=== PATIENT | female | born 1990 | race Caucasian/White ===

== ENCOUNTER 2022-01-20 16:08 | Observation (INO) ==
[2022-01-20] MEDS ORDERED: ACETAMINOPHEN 500 MG TAB PO STA (17:04)
[2022-01-20 17:20] LABS: Basophils # (auto) 0.02 K/uL (0-0.2); Basophils % (auto) 0.2 %; Hematocrit (blood only) 33.2 % (34.1-44.9); Hemoglobin 10.9 g/dl (12.0-16.0); Immature Granulocytes # (auto) 0.04 K/uL (0.00-0.02); Immature Granulocytes % (auto) 0.4 %; Lymphocytes # (auto) 1.47 K/uL (1.2-3.4); Mean Corpuscular Hgb Conc 32.8 g/dL (32.0-36.0); Mean Corpuscular Volume 82.4 fL (80.0-100.0); Mean Platelet Volume 12.6 fL (9.4-12.3); Monocytes # (auto) 0.64 K/uL (0.24-0.82); Monocytes % (auto) 6.1 %; Neutrophils # (auto) 8.22 K/uL (1.4-6.5); Neutrophils % (auto) 78.3 %; Platelet Count 188 K/uL (130-400); RDW Coefficient of Variation 13.2 % (11.5-14.5); RDW Standard Deviation 39.3 fL (36.4-46.3); Red Blood Count 4.03 M/uL (3.93-5.22); White Blood Count 10.49 K/ul (4.8-10.8)
[2022-01-20 17:46] LABS: Alanine Aminotransferase 21 U/L (7-52); Alkaline Phosphatase 176 U/L (34-104); Anion Gap 9 (3-11); Aspartate Aminotransferase 20 U/L (13-39); BUN Creatinine Ratio 17.3 (10-20); Bilirubin Direct 0.1 mg/dl (0-0.2); Bilirubin,Total 0.4 mg/dl (0.2-1.0); Blood Urea Nitrogen 14 mg/dl (6-23); Calcium 8.3 mg/dl (8.5-10.1); Carbon Dioxide 23 mmol/L (21-32); Chloride 103 mmol/L (98-107); Est GFR (African American) 113.8 ml/min; Est GFR (Non-African American) 98.1 ml/min; Globulin 2.9 gm/dl (2.5-4.0); Glucose 87 mg/dl (70-99(Fasting)); Sodium 135 mmol/L (136-145); Total Protein 5.9 gm/dl (6.0-8.3)
[2022-01-20] MEDS ORDERED: BETAMETH SOD PHOS/ACETATE IA 6 MG/ML IM STA (19:31)
[2022-01-20] MEDS ORDERED: CETIRIZINE HCL 10 MG TABLET PO PRN (20:21)
--- NOTE | 2022-01-20 20:21 | History & Physical Report ---
Date of Service January 20, 2022 Assessment & Plan (1) 35 weeks gestation of : (2) Dichorionic diamniotic twin , antepartum: (3) Preeclampsia: (4) Gestational diabetes: Plan: No persistence of elevated bps to suggest severe features but concern given her ega, twins and dx already of preeclampsia. feel prudent to observe and be ready to deliver patient if severe features develop. currently no symptoms of concern. begin course of steroids in meantime. breech/breech presentation and therefore c/s if needs delivered. spoke with peds sale professional digital marketing who is comfortable with twins delivering here if needed. twins categ 1 tracing. pt and partner a monet of plan. pt does have very labile sbp depending on when provider/nurse in room. however, will need to see what trend shows as delivery may become necessary. for now, will allow diet and plan routine home meds. Admission and Anticipated Discharge Date Admission Date: January 20, 2022 History of Present Illness Chief Complaint: elevated bps Primary Care Provider: Kai Reza MD 31yo at 35 3/7 wks ega with di/di twin , carrying dx of preeclampsia presents to L&D with above cc. Took bp at work today when had MCF[place] return after taking tylenol in am. DBP >100 and was told to come to LD. On arrival bp initially in severe range but then resolved to non severe range bps. Tylenol given for MCF[place] and MCF[place] improved. Patient babies were reactive x 2. Opted to sit up patient again for bp before considering d/c and sbp >160. That improved once back in semi-fowlers position. No persistent elevated bps to treat however concern about status ? worsening and therefore opted to keep overnight and initiate course of steroids. +FM x 2. Some epig discomfort due to babies positioning. No ruq pain. No MCF[place] currently. +swelling, not worse. being treated with prednisone for PUPPS and has been able to rest better at night, also using benadryl prn. GDM diet controlled as well. PNC c/b 1. Di/Di twins concordant, efw 2. GDM diet controlled. 3. Obesity 4. A sthma, has not used inhaler this 5. PUPPs, prednisone course. PNL rh pos, ri, gbs not collected yet Allergies Allergy/AdvReac Type Severity Reaction Status Date / Time No Known Allergies Allergy Verified 01/20/22 19:26 Home Medications Medication Instructions Recorded Confirmed Type prenat.vits,belkys,gnz-imnd-ekmbm 1 tab PO QAM 07/07/21 01/20/22 History acetone (urine) test (Ketone Urine #50 ea 09/18/21 01/16/22 Rx Test) blood sugar diagnostic (OneTouch #150 ea 09/18/21 01/16/22 Rx Verio test strips) blood-glucose meter (OneTouch #1 ea 09/18/21 01/16/22 Rx Verio Flex meter) lancets 33 gauge (OneTouch Delica #150 ea 09/18/21 01/16/22 Rx Plus Lancet) Breast Pump #1 ea 12/12/21 01/16/22 Rx aspirin 81 mg chewable tablet 81 mg PO QAM 12/26/21 01/20/22 History cetirizine 10 mg tablet (Zyrtec) 10 mg PO UD PRN 12/26/21 01/20/22 History famotidine 20 mg tablet (Pepcid) 20 mg PO BID 12/26/21 01/20/22 History prednisone 10 mg tablet 10 mg PO DAILY #30 tab 01/18/22 01/20/22 Rx Patient History Medical History Acid reflux Asthma Controlled Borderline high blood pressure 140s/80-90s per most recent OB visits, under surveillance Gestational diabetes Diet controlled History of COVID-19 Dx 12/12/21 ([facility] report scanned into [employer]) > symptoms at time: sore throat, congestion, body aches > resolved Twin ASA prophylactic d/t twin to decrease pre-eclampsia risk per pt Surgical History History of placement of ear tubes S/P nerve repair Nerve repair of L index finger [place] teeth extracted Family History Grandmother (Maternal) Breast cancer Aunt Breast cancer Grandmother (Paternal) Heart disease Myocardial infarction Father Hypertension Diabetes Type 2 Denies family history of Ovarian cancer Lung cancer Colorectal cancer Social History Smoking Status: Never smoker Hx Alcohol Use: No Hx Substance Use: No Preferred Language: Telugu Communication Ability: Effective Die Filer Required: No Beliefs That Will Affect Care: None marital status: marital status details: Nando Burrell (28) [phone] Current Living Situation: Spouse Current Living Situation Comment: Lives with and dog current occupational status: employed current occupation: [employer] - [employer] Other Information That Helps Us Care for You: No Feels Safe at Home: Yes Safety Concerns: Feels Safe At This Time Assistive Devices: None Review of Systems as per Subjective / HPI Physical Exam Constitutional: WD/WN, vitals as above Respiratory: normal respiratory effort, lungs clear to auscultation Cardiovascular: Rate/Rhythm: regular rate and regular rhythm Gastrointestinal (Abdomen): soft gravid nt no ruq or epig pain Musculoskeletal: +2 edema nontender calves Skin: diffuse papular rash Neurologic: grossly normal patellar dtrs +2, no clonus Psychiatric: A+Ox3, euthymic affect Genitourinary: OB Exam Monitor Tracing: + external FHT monitor used, + external uterine monitor used (irreg and irrit), + category I (twin nst reactive) and + normal FHT variability GBS obtained. [facility] ([facility]) Vital Signs (Past 12 Hours) Vital Signs Temp Pulse Resp BP 01/20/22 19:35 87 159/89 H 01/20/22 19:20 90 150/89 H 01/20/22 19:10 88 142/86 H 01/20/22 19:00 81 162/92 H 01/20/22 18:10 83 146/87 H 01/20/22 17:41 88 158/86 H 01/20/22 17:05 90 148/91 H 01/20/22 16:50 98.4 F 85 20 143/92 H 01/20/22 16:31 85 152/89 H 01/20/22 16:19 84 168/89 H Coding Level of Care Code None Diagnoses 35 weeks gestation of Z3A.35 Dichorionic diamniotic twin , antepartum O30.049 Preeclampsia O14.90 Gestational diabetes O24.419
[2022-01-20] MEDS ORDERED: diphenhydrAMINE Capsule 25 MG CAP PO PRN (20:23)
[2022-01-20] MEDS ORDERED: predniSONE 10 MG TABLET PO SCH (21:00)
[2022-01-20] MEDS ORDERED: FAMOTIDINE 20 MG TAB PO SCH (21:00)
[2022-01-20] MEDS ORDERED: Nursing to Pharmacy Communication SCH (21:15)
[2022-01-20] MEDS ORDERED: ACETAMINOPHEN 325 MG TAB PO PRN (23:00)
[2022-01-21 05:55] LABS: Hematocrit (blood only) 31.5 % (34.1-44.9); Hemoglobin 10.2 g/dl (12.0-16.0); Mean Corpuscular Hemoglobin 27.2 pg (25.0-34.0); Mean Corpuscular Hgb Conc 32.4 g/dL (32.0-36.0); Mean Platelet Volume 12.1 fL (9.4-12.3); Platelet Count 183 K/uL (130-400); RDW Coefficient of Variation 13.1 % (11.5-14.5); RDW Standard Deviation 39.4 fL (36.4-46.3); Red Blood Count 3.75 M/uL (3.93-5.22); White Blood Count 11.14 K/ul (4.8-10.8)
[2022-01-21 06:27] LABS: Albumin Globulin Ratio 1.1 (0.9-2); Albumin Level 2.7 gm/dl (3.4-5.0); BUN Creatinine Ratio 20.5 (10-20); Bilirubin Direct 0.1 mg/dl (0-0.2); Bilirubin,Total 0.6 mg/dl (0.2-1.0); Calcium 7.7 mg/dl (8.5-10.1); Creatinine Clr Calc Pharmacy 135.1 ml/min; Est GFR (African American) 119.1 ml/min; Est GFR (Non-African American) 102.7 ml/min; Globulin 2.5 gm/dl (2.5-4.0); Potassium 4.3 mmol/L (3.5-5.1); Total Protein 5.2 gm/dl (6.0-8.3)
--- NOTE | 2022-01-21 08:28 | Obstetrical Progress Note ---
Date of Service January 21, 2022 Assessment & Plan (1) Dichorionic diamniotic twin , antepartum: (2) Gestational diabetes: (3) Preeclampsia: (4) 35 weeks gestation of : Plan stable overnight. most bps are not severe range. and severe range bps, do not persist. no sx this am. labs this am were stable. nsts reactive today. s/p roid x 1 thus far. will consider dc home and re-dose roids x1 at 24hrs. will d/w oncoming md. pt aware. ok to eat breakfast. Admission and Anticipated Discharge Date Admission Date: January 20, 2022 Subjective feels well today, had mild costello overnight took tylenol and resolved. none this am. no epig/ruq pain, visual change. babies moving Review of Systems Constitutional: as per Subjective / HPI Physical Exam Constitutional: WD/WN, vitals as above Respiratory: normal respiratory effort, lungs clear to auscultation Cardiovascular: Rate/Rhythm: regular rate and regular rhythm Gastrointestinal (Abdomen): Percussion/Palpation: abdomen soft; abdomen nontender gravid Musculoskeletal: +2 edema Neurologic: DTRs +2-3 patellar, no clonus Genitourinary: OB Exam Monitor Tracing: + external FHT monitor used, + external uterine monitor used (irreg), + category I and + normal FHT variability (reactive x 2) Results & Data ([facility]) Vital Signs (Past 12 Hours) Vital Signs Temp Pulse Resp BP 01/21/22 07:47 98.2 F 90 20 144/86 H 01/21/22 05:46 103 H 121/68 01/21/22 04:01 97.9 F 83 16 138/78 01/21/22 02:08 91 H 128/60 01/20/22 23:54 16 01/20/22 23:54 16 01/20/22 23:54 74 01/20/22 23:54 131/66 01/20/22 22:03 83 01/20/22 22:03 154/88 H 01/20/22 21:22 82 01/20/22 21:22 135/70 01/20/22 20:25 20 01/20/22 20:25 98.2 F 20 01/20/22 20:25 83 01/20/22 20:25 166/84 H PG Care Time/CCT Total # of Minutes Spent Total Time Spent with Patient: Total time spent is greater than 50% in coordination of care (as documented) at patient's floor/unit and/or counseling patient: Coding Level of Care Code OBSERV/HOSP SAME DATE LVL 1 Diagnoses Dichorionic diamniotic twin , antepartum O30.049 Gestational diabetes O24.419 Preeclampsia O14.90 35 weeks gestation of Z3A.35
[2022-01-21] MEDS ORDERED: ASPIRIN 81 MG CHEW PO SCH (09:00)
[2022-01-21] MEDS ORDERED: PRENATAL VITAMIN 1 TAB PO SCH (09:00)
[2022-01-21] MEDS ORDERED: predniSONE 10 MG TABLET PO SCH (09:00)
== END 2022-01-21 09:06 | disposition home or self-care (01) ==
LOC: 4S1 16:08 → OPB 16:08 → 4S1 16:09

== ENCOUNTER 2022-01-26 15:42 | Inpatient (IN) ==
[2022-01-26] MEDS ORDERED: MAG SULFATE 4GM BOLUS FROM BAG IV ONE (16:07)
--- NOTE | 2022-01-26 16:14 | History & Physical Report ---
Date of Service January 26, 2022 Assessment & Plan (1) Encounter for supervision of normal intrauterine in primigravida, antepartum: Plan: Patient has had ongoing elevated blood pressures and been followed for preeclampsia she had a scheduled delivery date of section later this week at 37 weeks however she now has a worsening headache that is nonresponsive to Tylenol along with blood pressures in the severe features range I think this pushes her into preeclampsia with severe features I recommend delivery now patient agrees. section. The patient was counseled to the nature of the procedure including alternatives such as labor. Risks were discussed including bleeding infection injury to bowel bladder ureter vessels and even baby. Deep Vein thrombosis, pulmonary embolus discussed. Breakdown of incision reviewed. Deep vein thrombosis pulmonary embolus hernia and failure of the incision to heal were discussed Patient verbalized understanding of this and was given ample time to ask questions Discussed increased risk of blood loss with twin gestation Will order magnesium for preeclampsia with severe features and watch blood pressure carefully History of Present Illness Primary Care Provider: Kai Reza MD Allergies Allergy/AdvReac Type Severity Reaction Status Date / Time No Known Allergies Allergy Verified 01/26/22 15:04 Home Medications Medication Instructions Recorded Confirmed Type prenat.vits,belkys,psg-yndw-vgzpo 1 tab PO QAM 07/07/21 01/26/22 History acetone (urine) test (Ketone Urine #50 ea 09/18/21 01/26/22 Rx Test) blood sugar diagnostic (OneTouch #150 ea 09/18/21 01/26/22 Rx Verio test strips) blood-glucose meter (OneTouch #1 ea 09/18/21 01/26/22 Rx Verio Flex meter) lancets 33 gauge (OneTouch Delica #150 ea 09/18/21 01/26/22 Rx Plus Lancet) Breast Pump #1 ea 12/12/21 01/26/22 Rx aspirin 81 mg chewable tablet 81 mg PO QAM 12/26/21 01/26/22 History cetirizine 10 mg tablet (Zyrtec) 10 mg PO UD PRN Allergy Symptoms 12/26/21 01/26/22 History famotidine 20 mg tablet (Pepcid) 20 mg PO BID 12/26/21 01/26/22 History prednisone 10 mg tablet 10 mg PO DAILY #30 tabs 01/18/22 01/26/22 Rx Patient History Medical History Acid reflux Asthma Controlled Borderline high blood pressure 140s/80-90s per most recent OB visits, under surveillance Gestational diabetes Diet controlled History of COVID-19 Dx 12/12/21 ([facility] report scanned into [employer]) > symptoms at time: sore throat, congestion, body aches > resolved Twin ASA prophylactic d/t twin to decrease pre-eclampsia risk per pt Surgical History History of placement of ear tubes S/P nerve repair Nerve repair of L index finger [place] teeth extracted Family History Grandmother (Maternal) Breast cancer Aunt Breast cancer Grandmother (Paternal) Heart disease Myocardial infarction Father Hypertension Diabetes Type 2 Denies family history of Ovarian cancer Lung cancer Colorectal cancer Social History Smoking Status: Never smoker Hx Alcohol Use: No Hx Substance Use: No Preferred Language: Kyrgyz Communication Ability: Effective Instructional Specialist Required: No Beliefs That Will Affect Care: None marital status: marital status details: Nando Burrell (28) [phone] Current Living Situation: Spouse Current Living Situation Comment: Lives with and dog current occupational status: employed current occupation: [employer] Feels Safe at Home: Yes Assistive Devices: None Review of Systems as per Subjective / HPI Physical Exam Constitutional: WD/WN, vitals as above well developed and well nourished Respiratory: normal respiratory effort, lungs clear to auscultation normal respiratory effort Cardiovascular: RRR, no murmur, no edema Gastrointestinal (Abdomen): normal bowel sounds, soft, nontender, no hepatosplenomegaly Results & Data ([facility]) Vital Signs (Past 12 Hours) Vital Signs Pulse BP 01/26/22 15:59 80 167/90 H Coding Level of Care Code None Diagnoses Encounter for supervision of normal intrauterine in primigravida, antepartum Z34.00
[2022-01-26] MEDS ORDERED: MAGNESIUM SULFATE / WTR 40 GM/1,000 ML BAG IV SCH (16:15)
[2022-01-26] MEDS ORDERED: LACTATED RINGER'S 1,000 ML IV SCH (16:15)
--- NOTE | 2022-01-26 16:21 | History & Physical Report ---
Date of Service January 26, 2022 Assessment & Plan (1) with 36 completed weeks gestation: (2) Preeclampsia: (3) Dichorionic diamniotic twin , antepartum: (4) Gestational diabetes: Plan Blood pressure on presentation 167/90. Has headache and 10lbs weight gain over the past 3 days with swelling in her LE B/L. Plan was to deliver at 37 weeks, with todays presentation concern for preeclampsia with serve features. Plan for C Section tonight. History of Present Illness Primary Care Provider: Kai Reza MD Anne Marie is a 31 y/o female currently at 36 4/7 WGA with an JEFFERY 02/19/22 as determined by LMP who is here for with preeclampsia with serve features. Her was complicated by preecmalpsia and GDM. She is having di/di twins. Irregular contractions; + movement; no fluid loss; no bloody show External FHT and external uterine monitors used; Category 1 tracing; mod FHT variability. Had regular appointments with OB. Labs: (07/16/21) Blood type: A- Antibody screen: neg Hg: pending (today) Hct: pending (today) WBC: pending (today) Plt: pending (today) Rubella: immune VDRL/RPR: nonreactive Gonorrhea: neg Chlamydia: neg HIV: neg HbSAg: neg GBS: neg Other screens: declines all genetics/msafp --smp Allergies Allergy/AdvReac Type Severity Reaction Status Date / Time No Known Allergies Allergy Verified 01/26/22 15:04 Home Medications Medication Instructions Recorded Confirmed Type prenat.vits,belkys,sld-jexh-awjkz 1 tab PO QAM 07/07/21 01/26/22 History acetone (urine) test (Ketone Urine #50 ea 09/18/21 01/26/22 Rx Test) blood sugar diagnostic (OneTouch #150 ea 09/18/21 01/26/22 Rx Verio test strips) blood-glucose meter (OneTouch #1 ea 09/18/21 01/26/22 Rx Verio Flex meter) lancets 33 gauge (OneTouch Delica #150 ea 09/18/21 01/26/22 Rx Plus Lancet) Breast Pump #1 ea 12/12/21 01/26/22 Rx aspirin 81 mg chewable tablet 81 mg PO QAM 12/26/21 01/26/22 History cetirizine 10 mg tablet (Zyrtec) 10 mg PO UD PRN Allergy Symptoms 12/26/21 01/26/22 History famotidine 20 mg tablet (Pepcid) 20 mg PO BID 12/26/21 01/26/22 History prednisone 10 mg tablet 10 mg PO DAILY #30 tabs 01/18/22 01/26/22 Rx Patient History Medical History Acid reflux Asthma Controlled Borderline high blood pressure 140s/80-90s per most recent OB visits, under surveillance Gestational diabetes Diet controlled History of COVID-19 Dx 12/12/21 ([facility] report scanned into [employer]) > symptoms at time: sore throat, congestion, body aches > resolved Twin ASA prophylactic d/t twin to decrease pre-eclampsia risk per pt Surgical History History of placement of ear tubes S/P nerve repair Nerve repair of L index finger [place] teeth extracted Family History Grandmother (Maternal) Breast cancer Aunt Breast cancer Grandmother (Paternal) Heart disease Myocardial infarction Father Hypertension Diabetes Type 2 Denies family history of Ovarian cancer Lung cancer Colorectal cancer Social History Smoking Status: Never smoker Hx Alcohol Use: No Hx Substance Use: No Preferred Language: Gabonese Communication Ability: Effective Bindery Chief Required: No Beliefs That Will Affect Care: None marital status: marital status details: Nando Burrell (28) [phone] Current Living Situation: Spouse Current Living Situation Comment: Lives with and dog current occupational status: employed current occupation: [employer] Feels Safe at Home: Yes Assistive Devices: None Review of Systems Denies fever, chills, sweats Is having some mild shortness of breath. Denies difficulty breathing, chest pain, palpitations, chest pressure. Denies breast pain. Denies dysuria. Headache with some mild lightheadedness. No changes in vision. Physical Exam Physical Exam: General: Alert, oriented. No acute distress. Cardiac: Regular rate and rhythm, no murmurs/rubs/gallops. Respiratory: Clear to auscultation bilaterally a/p, no wheezes/rales/rhonchi. No increased work of breathing. Symmetrical chest rise. No respiratory distress. Abdomen: Gravid Lower Extremities: Lower extremity up to knee, tender, not erythematous. Results & Data ([facility]) Vital Signs (Past 12 Hours) Vital Signs Pulse BP 01/26/22 15:59 80 167/90 H Resident Activity Tracking Resident Involvement: Resident Care Provided Care Provided: OB Delivery (H&P)
[2022-01-26 16:30] LABS: Basophils # (auto) 0.02 K/uL (0-0.2); Basophils % (auto) 0.2 %; Eosinophils # (auto) 0.05 K/uL (0-0.50); Eosinophils % (auto) 0.5 %; Hematocrit (blood only) 30.4 % (34.1-44.9); Hemoglobin 9.9 g/dl (12.0-16.0); Immature Granulocytes # (auto) 0.11 K/uL (0.00-0.02); Immature Granulocytes % (auto) 1.1 %; Lymphocytes # (auto) 1.38 K/uL (1.2-3.4); Lymphocytes % (auto) 14.2 %; Mean Corpuscular Hemoglobin 26.7 pg (25.0-34.0); Mean Corpuscular Hgb Conc 32.6 g/dL (32.0-36.0); Mean Corpuscular Volume 81.9 fL (80.0-100.0); Mean Platelet Volume 12.7 fL (9.4-12.3); Monocytes # (auto) 0.66 K/uL (0.24-0.82); Monocytes % (auto) 6.8 %; Neutrophils # (auto) 7.52 K/uL (1.4-6.5); Neutrophils % (auto) 77.2 %; Nucleated RBC # (auto) 0.04 K/uL (0-0); Nucleated RBC % (auto) 0.4 %; Platelet Count 172 K/uL (130-400); RDW Coefficient of Variation 13.5 % (11.5-14.5); RDW Standard Deviation 39.6 fL (36.4-46.3); Red Blood Count 3.71 M/uL (3.93-5.22); White Blood Count 9.74 K/ul (4.8-10.8)
[2022-01-26 16:50] LABS: Est GFR (African American) 101.5 ml/min; Est GFR (Non-African American) 87.6 ml/min
[2022-01-26] MEDS ORDERED: CITRIC ACID/SODIUM CITRATE 15 ML UDC PO ONE (17:42)
--- NOTE | 2022-01-26 17:57 | Anesthesiology Consultation ---
Date of Service January 26, 2022 Assessment & Plan (1) Encounter for pre-operative examination: History Surgery Operation Date: 01/26/22 18:30 Proposed Procedures p Section in LD(Bilateral) - Matilda Pineda MD, FACOG Height/Weight Height: 5 ft 3 in Weight: 130.181 kg Allergies Allergy/AdvReac Type Severity Reaction Status Date / Time No Known Allergies Allergy Verified 01/26/22 15:04 Medications Home Medications Medication Instructions Recorded Confirmed Last Taken prenat.vits,belkys,hcg-gekv-xfobl 1 tab PO QAM 07/07/21 01/26/22 01/20/22 07:00 acetone (urine) test (Ketone Urine #50 ea 09/18/21 01/26/22 Unknown Test) blood sugar diagnostic (OneTouch #150 ea 09/18/21 01/26/22 Unknown Verio test strips) blood-glucose meter (OneTouch #1 ea 09/18/21 01/26/22 Unknown Verio Flex meter) lancets 33 gauge (OneTouch Delica #150 ea 09/18/21 01/26/22 Unknown Plus Lancet) Breast Pump #1 ea 12/12/21 01/26/22 Unknown aspirin 81 mg chewable tablet 81 mg PO QAM 12/26/21 01/26/22 01/20/22 07:00 cetirizine 10 mg tablet (Zyrtec) 10 mg PO UD PRN Allergy Symptoms 12/26/21 0 01/26/22 01/20/22 07:00 famotidine 20 mg tablet (Pepcid) 20 mg PO BID 12/26/21 01/26/22 01/20/22 07:00 prednisone 10 mg tablet 10 mg PO DAILY #30 tabs 01/18/22 01/26/22 01/18/22 10:00 Active Medications Generic Name Dose Route Start Last Admin Trade Name Freq PRN Reason Stop Dose Admin Lactated Ringer's 1,000 mls @ 125 mls/hr 01/26/22 16:15 01/26/22 17:01 Lr IV 02/25/22 16:14 125 mls/hr .Q8H CAROL Administration Magnesium Sulfate 40 gm in 1,000 mls @ 50 mls/hr 01/26/22 16:15 01/26/22 17:25 Magnesium Sulfate / Wtr IV 02/25/22 16:14 50 mls/hr .Q20H CAROL Administration Past Medical History Medical History Acid reflux Asthma Controlled Borderline high blood pressure 140s/80-90s per most recent OB visits, under surveillance Gestational diabetes Diet controlled History of COVID-19 Dx 12/12/21 ([facility] report scanned into [employer]) > symptoms at time: sore throat, congestion, body aches > resolved Twin ASA prophylactic d/t twin to decrease pre-eclampsia risk per pt Past Family History Family History Grandmother (Maternal) Breast cancer Aunt Breast cancer Grandmother (Paternal) Heart disease Myocardial infarction Father Hypertension Diabetes Type 2 Denies family history of Ovarian cancer Lung cancer Colorectal cancer Past Surgical History Surgical History History of placement of ear tubes S/P nerve repair Nerve repair of L index finger [place] teeth extracted Social History Smoking Status: Never smoker Hx Alcohol Use: No Hx Substance Use: No substance use type: does not use Physical Exam Vital Signs Last Vital Signs Temp 36.6 C 01/26/22 16:32 Pulse 95 H 01/26/22 17:59 Resp 20 01/26/22 17:15 BP 162/92 H 01/26/22 17:59 Pulse Ox 99 01/26/22 17:58 Testing Laboratory Results 01/26/22 16:20 01/26/22 16:20 Blood Type A Negative 01/26/22 16:20 Antibody Screen NEGATIVE 01/26/22 16:20
[2022-01-26] MEDS ORDERED: MoRPHine SULFATE PF 1 MG/ML 10 ML AMP/VIAL ONE (18:08)
[2022-01-26] MEDS ORDERED: PHENYLEPHRINE 100MCG/ML 5ML SYR ONE (19:06)
[2022-01-26] MEDS ORDERED: LIDOCAINE 2% 20 MG/ML 5 ML SYR IV ONE (19:06)
[2022-01-26] MEDS ORDERED: PROPOFOL IV EMULSION 10 MG/ML 20 ML VIAL IV ONE (19:06)
[2022-01-26] MEDS ORDERED: OXYTOCIN 10 UNITS/ML 10ML VIAL ONE (19:06)
[2022-01-26] MEDS ORDERED: ePHEDrine sulfate 50 MG/ML SYR ONE (19:06)
[2022-01-26] MEDS ORDERED: SUCCINYLCHOLINE CHLORIDE 20 MG/ML 10 ML VIAL IV ONE (19:06)
[2022-01-26] MEDS ORDERED: METOCLOPRAMIDE HCL INJ 5 MG/ML 2 ML VIAL ONE (19:06)
[2022-01-26] MEDS ORDERED: ONDANSETRON INJ 2 MG/ML 2 ML VIAL ONE (19:06)
[2022-01-26 19:31] LABS: Base Excess Cord Arterial Bld 2.8 mEq/L (-9-1.8); CO2 Cord Arterial Blood 52 mmHg (39.1-73.5); HCO3 Cord Arterial Blood 29 mmol/L (19.7-28.5); Oxygen Sat Cord Arterial Blood < 60.0 % (<60); PO2 Cord Arterial Blood 28 mmHg (4.1-31.7); pH Cord Arterial Blood 7.36 (7.1-7.38)
[2022-01-26 19:34] LABS: Cord Venous Blood HCO3 31 mmol/L (18.4-26.8); Cord Venous Blood PCO2 67 mmHg (30.4-57.2); Cord Venous Blood PO2 20 mmHg (14.1-43.3); Cord Venous Blood pH 7.27 (7.20-7.44); O2 Saturation Cord Venous Bld < 60.0 % (<68)
--- NOTE | 2022-01-26 19:35 | Operative Report ---
PG Post Operative Report Pre & Post Diagnosis Operation Date: 01/26/22 18:30 Pre-Op Diagnosis: Dichorionic Twins at 36 and 4/7 completed weeks; Breech/ Breech presentation;Preeclampsia with Severe features Post-Op Diagnosis: Same; delivery of a live female child (Twin A) at 1856 and delivery of a live female child(Twin B) at 1857 I identified the patient and participated in the time-out.: Yes Procedure Operation Date: 01/26/22 18:30 Actual Procedures p Section in LD Baby A @ 1856, Baby B @ 1857(Bilateral) - Matilda Pineda MD, FACOG Surgeon Matilda Pineda MD, FACOG Dough Cutting Machine Operator Dr. Viramontes Estimated Blood Loss 700 Findings Consistent with Post-Op Diagnosis Specimens Cord blood Cord gases placenta Description of Procedure Regional anesthetic had been given by anesthesia patient was prepped and draped with a leftward tilt preoperative antibiotics had been given in appropriate timing by anesthesiology. Once the prep was allowed to fully dry timeout was performed. Pickups with teeth were used to test the incision area was found to be adequate for incision as the patient did not feel sharp pain. Scalpel was used to make a Pfannenstiel incision on the lower abdomen. We then cut through the subcutaneous fat down to the level of the anterior rectus sheath fascia this was cut in the midline and then extended laterally with the curved Kelly scissors. At this stage we then placed 2 Sergo clamps on the anterior aspect of the fascia. Using the curved Kelly's we are able to dissect the fascia superiorly away from the rectus muscles. Care was taken to maintain hemostasis. Sergo clamps were then placed to the inferior aspect of the anterior sheath of the fascia. Fascia was then dissected away from the rectus muscles inferiorly towards the pubic bone. A Sergo was then placed in the midline both inferiorly and superiorly. This was to allow exposure by retraction rectus muscles were in the midline with were then able to cut through the peritoneum and then enter the peritoneal cavity. Opening was enlarged to allow exposure of the peritoneal cavity both superiorly and inferiorly. Once adequate space was obtained a bladder retractor was placed to expose the lower segment Metzenbaums were used to dissect the bladder flap inferiorly away from the uterus. This was done sharply bladder retractor was then repositioned to expose the lower segment of the uterus Fresh scalpel was used to make a low transverse incision on the uterus. Uterus was then entered bluntly with the operators finger, membranes ruptured and the opening was enlarged using the operators fingers bluntly pulling superiorly and inferiorly to allow exposure. First baby of the twins was footling breech I was able to grab both feet and then rotate the back to anterior position then with gentle traction I was able to deliver much of the torso arms were swept across the chest and the baby's head was delivered without excessive extension live vigorous female We then palpated the second sac found both feet membranes were then ruptured by the yard operator baby was delivered by foot extraction in the exact same process with gentle traction on the baby to deliver the torso and then arm swept towards the middle and baby's head delivered without difficulty live vigorous female infant cords were clamped and cut cord gases obtained cord blood obtained placenta was removed completely we ensured the placenta was removed with a moist lap uterus was exteriorized Uterus was then exteriorized. IV Pitocin had been started by anesthesia tone improved there were no extensions the uterus was then closed using 0 Monocryl in a 2 layer closure the first layer closed in a running locked fashion from left to right and then a second closure from left to right in a running nonlocked fashion. At this stage hemostasis was excellent. Uterus was placed back in the peritoneal cavity with suction irrigation out and inspection of the uterus at this stage revealed excellent hemostasis Retractors were removed urine color was clear at this stage of the case we inspected the rectus muscles they were hemostatic fascia was closed with 0 Vicryl subcutaneous fat was irrigated and closed with 3-0 Vicryl skin closed with 4-0 subcuticular Monocryl I attest to the content of the Intraoperative Record and any orders documented therein. Any exceptions are noted below. OB Procedure Charges 50822 (TWINS!)
[2022-01-26] MEDS ORDERED: HYDROCORTISONE ACETATE 25 MG SUPP PR PRN (19:39)
[2022-01-26] MEDS ORDERED: DIPHTHERIA/TETANUS/PERTUSSIS 0.5 ML SYR/VIAL IM ONE (19:39)
[2022-01-26] MEDS ORDERED: BENZOCAINE 20% AER SPR 82.5 GM CAN EXT PRN (19:39)
[2022-01-26] MEDS ORDERED: MAGNESIUM HYDROXIDE SUSP 30 ML UDC PO PRN (19:39)
[2022-01-26] MEDS ORDERED: SENNA 8.6 MG TAB PO PRN (19:39)
[2022-01-26] MEDS: OXYTOCIN 20 UNITS in LACTATED RINGER'S 1,000 ML IV SCH (19:47)
[2022-01-26] MEDS ORDERED: ePHEDrine sulfate 50 MG/ML AMP IV PRN (19:57)
[2022-01-26] MEDS ORDERED: MoRPHine SULFATE PF 1 MG/ML 10 ML AMP/VIAL INT SPINAL ONE (19:57)
[2022-01-26] MEDS ORDERED: NALOXONE HCL 0.4 MG/1 ML VIAL/CARP IV PRN (19:57)
[2022-01-26] MEDS ORDERED: LACTATED RINGER'S 500 ML IV PRN (19:57)
[2022-01-26] MEDS ORDERED: PROMETHAZINE HCL 12.5 MG in SODIUM CHLORIDE 0.9% 50 ML IV PRN (19:57)
[2022-01-26] MEDS ORDERED: NALBUPHINE HCL INJ 10 MG/ML AMP IV PRN (19:57)
[2022-01-26] MEDS ORDERED: NALOXONE HCL 1 MG in SODIUM CHLORIDE 0.9% 1000ML 1,000 ML IV PRN (19:57)
[2022-01-26] MEDS ORDERED: diphenhydrAMINE 50 MG/ML VIAL IV PRN (19:57)
[2022-01-26] MEDS ORDERED: ONDANSETRON INJ 2 MG/ML 2 ML VIAL IV PRN (19:57)
[2022-01-26] MEDS ORDERED: NALOXONE HCL 0.08 MG in SYRINGE 1.8 ML IV PRN (19:57)
[2022-01-26] MEDS ORDERED: MoRPHine SULFATE 2 MG/ML CARP IV PRN (19:57)
[2022-01-26] MEDS ORDERED: SODIUM CHLORIDE 0.9% 1000ML 1,000 ML IV SCH (20:00)
[2022-01-26] MEDS ORDERED: NO NARCOTICS OR SEDATIVES PRN (21:24)
--- NOTE | 2022-01-26 21:46 | Anesthesiology Progress Note ---
Date of Service January 26, 2022 Anesthesia Post Procedure Vital Signs Vital Signs: Temp Pulse Resp BP Pulse Ox 01/26/22 21:05 18 01/26/22 20:35 16 01/26/22 20:35 16 01/26/22 20:25 16 01/26/22 20:15 18 01/26/22 20:05 18 01/26/22 19:55 18 01/26/22 19:45 16 01/26/22 19:35 36.5 C 18 01/26/22 17:15 20 01/26/22 16:32 36.6 C 82 20 170/94 H 01/26/22 21:40 99 H 97 01/26/22 21:38 96 H 149/70 H 01/26/22 21:35 95 H 99 01/26/22 21:33 93 H 150/71 H 01/26/22 21:30 95 H 94 01/26/22 21:25 101 H 98 01/26/22 21:20 99 H 98 01/26/22 21:18 103 H 149/72 H 01/26/22 21:15 104 H 96 01/26/22 21:10 116 H 99 01/26/22 21:05 104 H 99 01/26/22 21:03 113 H 152/73 H 01/26/22 21:00 113 H 100 01/26/22 20:55 90 96 01/26/22 20:50 90 96 01/26/22 20:48 86 146/70 H 01/26/22 20:45 90 95 01/26/22 20:40 89 95 01/26/22 20:35 96 01/26/22 20:35 90 01/26/22 20:35 87 94 01/26/22 20:33 86 138/66 01/26/22 20:30 85 97 01/26/22 20:25 90 98 01/26/22 20:20 94 H 97 01/26/22 20:15 95 H 97 01/26/22 20:14 155/63 H 01/26/22 20:10 103 H 96 01/26/22 20:09 95 H 133/59 L 01/26/22 20:05 95 H 96 01/26/22 20:00 95 H 97 01/26/22 19:55 89 97 01/26/22 19:54 82 144/65 H 01/26/22 19:50 96 H 97 01/26/22 19:49 89 135/61 01/26/22 19:45 96 H 98 01/26/22 19:43 96 H 145/66 H 01/26/22 19:39 111 H 97 01/26/22 19:38 108 H 91 01/26/22 19:34 102 H 135/60 100 01/26/22 18:23 93 H 100 01/26/22 18:24 92 H 139/70 01/26/22 18:19 88 163/79 H 01/26/22 18:18 86 98 01/26/22 18:13 100 01/26/22 18:13 87 01/26/22 18:13 86 158/77 H 01/26/22 18:08 89 158/79 H 100 01/26/22 18:03 99 01/26/22 18:03 90 01/26/22 18:03 91 H 162/94 H 01/26/22 17:59 95 H 162/92 H 01/26/22 17:58 92 H 99 01/26/22 17:53 99 01/26/22 17:53 85 01/26/22 17:53 88 189/91 H 01/26/22 17:48 89 149/84 H 99 01/26/22 17:43 95 H 100 01/26/22 17:44 91 H 154/103 H 01/26/22 17:38 98 01/26/22 17:38 85 01/26/22 17:38 84 154/84 H 01/26/22 17:33 87 148/82 H 98 01/26/22 17:28 92 H 98 01/26/22 17:23 93 H 146/81 H 97 01/26/22 17:18 87 98 01/26/22 17:19 89 141/85 H 01/26/22 17:13 85 98 01/26/22 17:14 82 151/80 H 01/26/22 17:08 81 98 01/26/22 17:07 85 158/80 H 01/26/22 17:03 84 100 01/26/22 16:58 88 99 01/26/22 16:29 82 170/94 H 01/26/22 15:59 80 167/90 H Transfer of Care Handoff Completed per policy Notes Mental Status: alert / awake / arousable Patient Amnestic to Procedure: Yes Nausea / Vomiting: adequately controlled Pain: adequately controlled Airway Patency, RR, SpO2: stable & adequate BP & HR: stable & adequate Hydration State: stable & adequate Neuraxial Anesthesia: was administered and sensory block is resolving Anesthetic Complications: no major complications apparent
[2022-01-26] MEDS: DOCUSATE SODIUM 100 MG CAP PO SCH (22:31)
[2022-01-26] MEDS: SIMETHICONE 80 MG CHEW PO SCH (22:31)
[2022-01-27] MEDS: KETOROLAC 30 MG/ML VIAL IV PRN ×2 (01:37→07:42)
[2022-01-27] MEDS: LACTATED RINGER'S 1,000 ML IV SCH ×2 (04:01→05:43)
--- NOTE | 2022-01-27 06:05 | Obstetrical Progress Note ---
Date of Service January 27, 2022 Assessment & Plan (1) Preeclampsia: (2) Status post section: Plan plan for d/c Sy, do a trial of OOB and ambulation and then progress diet as tolerated Continue to monitor blood pressures and stop magnesium when appropriate Subjective Anne Marie is a 31 y/o female who is POD #1 following delivery at 36 4/7 of di/di twins. She reports feeling well overall this morning. Moderate abdominal cramping & pain well managed on analgesics. Sy is still in place. Tolerating liquids overnight. Not ambulating yet. Is passing gas, but no bowel movement. Has some persistent lochia with some improvement this morning. Goal is to breastfeed. Review of Systems Denies fever, chills, sweats Denies shortness of breath, difficulty breathing, chest pain, palpitations, chest pressure. Denies breast pain. Denies dysuria. Denies headache or changes in vision. Physical Exam General: Alert, oriented. No acute distress. Cardiac: Regular rate and rhythm, no murmurs/rubs/gallops. Respiratory: Clear to auscultation bilaterally a/p, no wheezes/rales/rhonchi. No increased work of breathing. Symmetrical chest rise. No respiratory distress. Abdomen: Soft, nontender, nondistended. Bowel sounds present. Uterus: Uterine fundus firm, palpable at umbilicus. Lower Extremities: Continues to have LE edema B/L, tender but not erythematous. Results & Data ([facility]) Vital Signs (Past 12 Hours) Vital Signs Temp Pulse Resp BP Pulse Ox O2 Del Method 01/27/22 05:30 01/27/22 04:35 01/27/22 03:35 18 01/27/22 02:35 01/27/22 01:35 01/27/22 00:38 18 01/26/22 23:35 37.1 C 01/26/22 23:35 01/26/22 22:35 01/26/22 22:35 18 98 Room Air 01/26/22 21:35 37.1 C 01/26/22 21:05 18 01/26/22 20:35 01/26/22 20:35 01/26/22 20:25 01/26/22 20:15 18 01/26/22 20:05 18 01/26/22 19:55 18 01/26/22 19:45 16 01/26/22 19:35 36.5 C 18 01/27/22 06:00 98 H 95 01/27/22 05:55 90 97 01/27/22 05:50 96 01/27/22 05:50 90 01/27/22 05:50 88 89 L 01/27/22 05:45 92 H 93 01/27/22 05:40 88 97 01/27/22 05:35 101 H 151/84 H 93 01/27/22 05:30 94 H 95 01/27/22 05:29 90 147/81 H 01/27/22 05:26 95 H 91 01/27/22 05:25 95 H 96 01/27/22 05:20 96 H 95 01/27/22 05:15 93 H 93 01/27/22 05:10 91 H 91 01/27/22 05:06 89 89 L 01/27/22 05:05 88 94 01/27/22 05:00 90 94 01/27/22 04:55 92 H 91 01/27/22 04:50 93 H 95 01/27/22 04:45 93 01/27/22 04:45 92 H 01/27/22 04:45 92 H 91 01/27/22 04:40 88 94 01/27/22 04:36 88 145/81 H 01/27/22 04:35 90 96 01/27/22 04:30 88 91 01/27/22 04:25 90 01/27/22 04:25 90 01/27/22 04:25 92 H 90 01/27/22 04:20 90 92 01/27/22 04:19 90 91 01/27/22 04:15 87 96 01/27/22 04:10 95 H 90 01/27/22 04:05 92 H 95 01/27/22 04:00 92 H 93 01/27/22 03:55 88 94 01/27/22 03:50 94 H 92 01/27/22 03:51 95 H 91 01/27/22 03:45 94 H 92 01/27/22 03:44 92 H 90 01/27/22 03:40 89 93 01/27/22 03:35 89 93 01/27/22 03:36 89 148/82 H 01/27/22 03:30 88 94 01/27/22 03:25 88 93 01/27/22 03:23 87 91 01/27/22 03:20 91 H 95 01/27/22 03:15 91 H 92 01/27/22 03:10 93 H 97 01/27/22 03:05 89 94 01/27/22 03:06 92 H 91 01/27/22 03:00 93 H 95 01/27/22 03:01 95 H 89 L 01/27/22 02:55 91 H 95 01/27/22 02:56 97 H 90 01/27/22 02:50 93 H 96 01/27/22 02:45 97 H 94 01/27/22 02:40 97 H 94 01/27/22 02:38 92 H 150/66 H 01/27/22 02:35 96 H 94 01/27/22 02:36 96 H 168/76 H 01/27/22 02:30 101 H 95 01/27/22 02:25 97 H 96 01/27/22 02:20 101 H 94 01/27/22 02:15 98 H 92 01/27/22 02:10 100 H 95 01/27/22 02:05 99 H 93 01/27/22 02:00 100 H 96 01/27/22 01:58 92 H 91 01/27/22 01:55 91 H 91 01/27/22 01:53 94 H 91 01/27/22 01:50 94 H 92 01/27/22 01:48 92 H 91 01/27/22 01:45 94 H 91 01/27/22 01:43 91 H 90 01/27/22 01:40 91 H 95 01/27/22 01:36 90 01/27/22 01:36 98 H 01/27/22 01:35 94 H 93 01/27/22 01:36 93 H 141/79 H 01/27/22 01:30 94 01/27/22 01:30 97 H 01/27/22 01:30 99 H 91 01/27/22 01:25 103 H 93 01/27/22 01:20 95 H 97 01/27/22 01:15 95 H 93 01/27/22 01:10 91 H 93 01/27/22 01:09 96 H 91 01/27/22 01:05 96 H 95 01/27/22 01:03 97 H 91 01/27/22 01:00 94 H 93 01/27/22 00:55 96 H 93 01/27/22 00:52 97 H 91 01/27/22 00:50 98 H 92 01/27/22 00:45 95 H 93 01/27/22 00:46 98 H 91 01/27/22 00:40 97 H 94 01/27/22 00:36 96 H 144/80 H 01/27/22 00:35 98 H 95 01/27/22 00:30 94 H 96 01/27/22 00:25 106 H 94 01/27/22 00:20 102 H 96 01/27/22 00:15 105 H 97 01/27/22 00:10 105 H 93 01/27/22 00:05 107 H 94 01/27/22 00:00 97 H 97 01/26/22 23:55 97 H 90 01/26/22 23:50 95 H 91 01/26/22 23:45 94 H 96 01/26/22 23:43 101 H 89 L 01/26/22 23:40 97 H 96 01/26/22 23:35 94 H 95 18 23:36 94 H 141/69 H 01/26/22 23:30 104 H 91 18 23:25 95 H 95 18 23:24 95 H 92 01/26/22 23:20 101 H 94 1822 23:19 98 H 92 01/26/22 23:15 103 H 93 18 23:12 98 H 91 18 23:10 103 H 94 1822 23:06 109 H 92 18 23:05 106 H 94 1822 23:00 101 H 94 1822 22:55 105 H 94 071822 22:50 105 H 95 1822 22:47 103 H 92 1822 22:45 104 H 93 1822 22:40 102 H 96 1822 22:35 96 1822 22:35 108 H 1822 22:35 99 H 148/83 H 1822 22:30 99 H 97 18 22:25 105 H 95 1822 22:20 102 H 94 1822 22:18 100 H 92 1822 22:15 106 H 96 18 22:10 105 H 96 1822 22:09 98 H 91 01/26/22 22:05 104 H 94 071822 22:00 102 H 96 01/26/22 21:55 102 H 97 01/26/22 21:50 96 H 95 01/26/22 21:45 101 H 97 22 21:40 99 H 97 01/26/22 21:38 96 H 149/70 H 01/26/22 21:35 95 H 99 01/26/22 21:33 93 H 150/71 H 01/26/22 21:30 95 H 94 18 21:25 101 H 98 01/26/22 21:20 99 H 98 01/26/22 21:18 103 H 149/72 H 01/26/22 21:15 104 H 96 01/26/22 21:10 116 H 99 01/26/22 21:05 104 H 99 01/26/22 21:03 113 H 152/73 H 01/26/22 21:00 113 H 100 01/26/22 20:55 90 96 01/26/22 20:50 90 96 1822 20:48 86 146/70 H 01/26/22 20:45 90 95 1822 20:40 89 95 1822 20:35 96 22 20:35 90 22 20:35 87 94 1822 20:33 86 138/66 1822 20:30 85 97 1822 20:25 90 98 1822 20:20 94 H 97 18 20:15 95 H 97 18 20:14 155/63 H 01/26/22 20:10 103 H 96 01/26/22 20:09 95 H 133/59 L 01/26/22 20:05 95 H 96 18 20:00 95 H 97 18 19:55 89 97 22 19:54 82 144/65 H 01/26/22 19:50 96 H 97 07/18/22 19:49 89 135/61 01/26/22 19:45 96 H 98 01/26/22 19:43 96 H 145/66 H 01/26/22 19:39 111 H 97 01/26/22 19:38 108 H 91 01/26/22 19:34 102 H 135/60 100 01/26/22 18:23 93 H 100 01/26/22 18:24 92 H 139/70 01/26/22 18:19 88 163/79 H 01/26/22 18:18 86 98 01/26/22 18:13 100 01/26/22 18:13 87 01/26/22 18:13 86 158/77 H 01/26/22 18:08 89 158/79 H 100 01/26/22 18:03 99 01/26/22 18:03 90 01/26/22 18:03 91 H 162/94 H
[2022-01-27 06:13] LABS: Hematocrit (blood only) 26.9 % (34.1-44.9); Hemoglobin 8.7 g/dl (12.0-16.0); Mean Corpuscular Hemoglobin 27.1 pg (25.0-34.0); Mean Corpuscular Hgb Conc 32.3 g/dL (32.0-36.0); Mean Corpuscular Volume 83.8 fL (80.0-100.0); Mean Platelet Volume 12.6 fL (9.4-12.3); Platelet Count 158 K/uL (130-400); RDW Coefficient of Variation 13.2 % (11.5-14.5); RDW Standard Deviation 39.8 fL (36.4-46.3); Red Blood Count 3.21 M/uL (3.93-5.22); White Blood Count 11.57 K/ul (4.8-10.8)
[2022-01-27 06:40] LABS: Albumin Level 2.3 gm/dl (3.4-5.0); Bilirubin Direct 0.1 mg/dl (0-0.2); Bilirubin,Total 0.4 mg/dl (0.2-1.0); Creatinine Clr Calc Pharmacy 133.5 ml/min; Est GFR (African American) 112.1 ml/min; Est GFR (Non-African American) 96.7 ml/min; Total Protein 4.7 gm/dl (6.0-8.3)
--- NOTE | 2022-01-27 06:51 | Obstetrical Progress Note ---
Date of Service January 27, 2022 Assessment & Plan (1) Severe pre-eclampsia: Patient's labs are reviewed she did have some shortness of breath although does not look distressed at all and she had a decrease in urine output her hemoglobin is stable we did stop her magnesium levels briefly on the worry that this could be magnesium toxicity however her magnesium levels are only 4.8 I think at this stage we will restart her magnesium therapy monitor her urine output carefully and continue the magnesium for seizure prophylaxis Results & Data ([facility]) Vital Signs (Past 12 Hours) Vital Signs Temp Pulse Resp BP Pulse Ox O2 Del Method 01/27/22 06:35 16 01/27/22 05:30 16 01/27/22 04:35 18 01/27/22 03:35 18 01/27/22 02:35 16 01/27/22 01:35 16 01/27/22 00:38 18 01/26/22 23:35 98.8 F 01/26/22 23:35 16 01/26/22 22:35 18 01/26/22 22:35 18 98 Room Air 01/26/22 21:35 98.8 F 19 01/26/22 21:05 18 01/26/22 20:35 16 01/26/22 20:35 16 01/26/22 20:25 16 01/26/22 20:15 18 01/26/22 20:05 18 01/26/22 19:55 18 01/26/22 19:45 16 01/26/22 19:35 97.7 F 18 01/27/22 06:45 85 95 01/27/22 06:40 89 96 01/27/22 06:38 92 H 168/97 H 01/27/22 06:35 91 H 94 01/27/22 06:36 89 157/92 H 01/27/22 06:30 92 H 96 01/27/22 06:25 95 H 94 01/27/22 06:20 99 H 96 01/27/22 06:15 103 H 95 01/27/22 06:10 95 H 94 01/27/22 06:05 96 H 94 01/27/22 06:00 98 H 95 01/27/22 05:55 90 97 01/27/22 05:50 96 01/27/22 05:50 90 01/27/22 05:50 88 89 L 01/27/22 05:45 92 H 93 01/27/22 05:40 88 97 01/27/22 05:35 101 H 151/84 H 93 01/27/22 05:30 94 H 95 01/27/22 05:29 90 147/81 H 01/27/22 05:26 95 H 91 01/27/22 05:25 95 H 96 01/27/22 05:20 96 H 95 01/27/22 05:15 93 H 93 01/27/22 05:10 91 H 91 01/27/22 05:06 89 89 L 01/27/22 05:05 88 94 01/27/22 05:00 90 94 01/27/22 04:55 92 H 91 01/27/22 04:50 93 H 95 01/27/22 04:45 93 01/27/22 04:45 92 H 01/27/22 04:45 92 H 91 01/27/22 04:40 88 94 01/27/22 04:36 88 145/81 H 01/27/22 04:35 90 96 01/27/22 04:30 88 91 01/27/22 04:25 90 01/27/22 04:25 90 01/27/22 04:25 92 H 90 01/27/22 04:20 90 92 01/27/22 04:19 90 91 01/27/22 04:15 87 96 01/27/22 04:10 95 H 90 01/27/22 04:05 92 H 95 01/27/22 04:00 92 H 93 01/27/22 03:55 88 94 01/27/22 03:50 94 H 92 01/27/22 03:51 95 H 91 01/27/22 03:45 94 H 92 01/27/22 03:44 92 H 90 01/27/22 03:40 89 93 01/27/22 03:35 89 93 01/27/22 03:36 89 148/82 H 01/27/22 03:30 88 94 01/27/22 03:25 88 93 01/27/22 03:23 87 91 01/27/22 03:20 91 H 95 01/27/22 03:15 91 H 92 01/27/22 03:10 93 H 97 01/27/22 03:05 89 94 01/27/22 03:06 92 H 91 07/19/22 03:00 93 H 95 01/27/22 03:01 95 H 89 L 01/27/22 02:55 91 H 95 01/27/22 02:56 97 H 90 01/27/22 02:50 93 H 96 01/27/22 02:45 97 H 94 01/27/22 02:40 97 H 94 01/27/22 02:38 92 H 150/66 H 01/27/22 02:35 96 H 94 01/27/22 02:36 96 H 168/76 H 01/27/22 02:30 101 H 95 01/27/22 02:25 97 H 96 01/27/22 02:20 101 H 94 01/27/22 02:15 98 H 92 01/27/22 02:10 100 H 95 01/27/22 02:05 99 H 93 01/27/22 02:00 100 H 96 01/27/22 01:58 92 H 91 01/27/22 01:55 91 H 91 01/27/22 01:53 94 H 91 01/27/22 01:50 94 H 92 01/27/22 01:48 92 H 91 01/27/22 01:45 94 H 91 01/27/22 01:43 91 H 90 01/27/22 01:40 91 H 95 01/27/22 01:36 90 01/27/22 01:36 98 H 01/27/22 01:35 94 H 93 01/27/22 01:36 93 H 141/79 H 01/27/22 01:30 94 01/27/22 01:30 97 H 01/27/22 01:30 99 H 91 01/27/22 01:25 103 H 93 01/27/22 01:20 95 H 97 01/27/22 01:15 95 H 93 01/27/22 01:10 91 H 93 01/27/22 01:09 96 H 91 01/27/22 01:05 96 H 95 01/27/22 01:03 97 H 91 01/27/22 01:00 94 H 93 01/27/22 00:55 96 H 93 01/27/22 00:52 97 H 91 01/27/22 00:50 98 H 92 01/27/22 00:45 95 H 93 01/27/22 00:46 98 H 91 01/27/22 00:40 97 H 94 01/27/22 00:36 96 H 144/80 H 01/27/22 00:35 98 H 95 01/27/22 00:30 94 H 96 01/27/22 00:25 106 H 94 01/27/22 00:20 102 H 96 01/27/22 00:15 105 H 97 01/27/22 00:10 105 H 93 01/27/22 00:05 107 H 94 01/27/22 00:00 97 H 97 01/26/22 23:55 97 H 90 01/26/22 23:50 95 H 91 01/26/22 23:45 94 H 96 01/26/22 23:43 101 H 89 L 01/26/22 23:40 97 H 96 01/26/22 23:35 94 H 95 01/26/22 23:36 94 H 141/69 H 01/26/22 23:30 104 H 91 01/26/22 23:25 95 H 95 01/26/22 23:24 95 H 92 01/26/22 23:20 101 H 94 1822 23:19 98 H 92 0718 23:15 103 H 93 071822 23:12 98 H 91 0718 23:10 103 H 94 18 23:06 109 H 92 18 23:05 106 H 94 18 23:00 101 H 94 071822 22:55 105 H 94 1822 22:50 105 H 95 1822 22:47 103 H 92 1822 22:45 104 H 93 1822 22:40 102 H 96 1822 22:35 96 071822 22:35 108 H 071822 22:35 99 H 148/83 H 071822 22:30 99 H 97 071822 22:25 105 H 95 0718/22 22:20 102 H 94 071822 22:18 100 H 92 071822 22:15 106 H 96 0718/22 22:10 105 H 96 071822 22:09 98 H 91 1822 22:05 104 H 94 07/18/22 22:00 102 H 96 07/18/22 21:55 102 H 97 07/18/22 21:50 96 H 95 07/18/22 21:45 101 H 97 0718/22 21:40 99 H 97 0718/22 21:38 96 H 149/70 H 0718/22 21:35 95 H 99 07/18/22 21:33 93 H 150/71 H 18/22 21:30 95 H 94 0718/22 21:25 101 H 98 0718/22 21:20 99 H 98 0718/22 21:18 103 H 149/72 H 0718/22 21:15 104 H 96 0718/22 21:10 116 H 99 0718/22 21:05 104 H 99 18/22 21:03 113 H 152/73 H 18/22 21:00 113 H 100 18/22 20:55 90 96 0718/22 20:50 90 96 07/18/22 20:48 86 146/70 H 18/22 20:45 90 95 07/18/22 20:40 89 95 07/18/22 20:35 96 07/18/22 20:35 90 07/18/22 20:35 87 94 07/18/22 20:33 86 138/66 /18/22 20:30 85 97 /18/22 20:25 90 98 07/18/22 20:20 94 H 97 18/22 20:15 95 H 97 18/22 20:14 155/63 H 18/22 20:10 103 H 96 18/22 20:09 95 H 133/59 L 18/22 20:05 95 H 96 18/22 20:00 95 H 97 07/18/22 19:55 89 97 07/18/22 19:54 82 144/65 H 0718/22 19:50 96 H 97 07/18/22 19:49 89 135/61 07/18/22 19:45 96 H 98 07/18/22 19:43 96 H 145/66 H 0718/22 19:39 111 H 97 07/18/22 19:38 108 H 91 0718/22 19:34 102 H 135/60 100
[2022-01-27] MEDS ORDERED: MAGNESIUM SULFATE / WTR 40 GM/1,000 ML BAG IV SCH (07:40)
[2022-01-27] MEDS ORDERED: SODIUM CHLORIDE 0.9% 250 ML IV PRN (08:12)
[2022-01-27] MEDS: DOCUSATE SODIUM 100 MG CAP PO SCH ×2 (10:01→21:41)
[2022-01-27] MEDS: FERROUS SULFATE 325 MG TAB PO SCH (10:02)
[2022-01-27] MEDS: PRENATAL VITAMIN 1 TAB PO SCH (10:02)
[2022-01-27] MEDS: SIMETHICONE 80 MG CHEW PO SCH ×4 (10:06→21:41)
[2022-01-27] MEDS: OXYTOCIN 20 UNITS in LACTATED RINGER'S 1,000 ML IV SCH (10:39)
[2022-01-27 12:05] LABS: Hemoglobin 8.2 g/dl (12.0-16.0); Mean Corpuscular Hemoglobin 27.1 pg (25.0-34.0); Mean Corpuscular Hgb Conc 32.8 g/dL (32.0-36.0); Mean Corpuscular Volume 82.5 fL (80.0-100.0); Mean Platelet Volume 11.8 fL (9.4-12.3); Platelet Count 154 K/uL (130-400); RDW Coefficient of Variation 13.5 % (11.5-14.5); RDW Standard Deviation 40.4 fL (36.4-46.3); Red Blood Count 3.03 M/uL (3.93-5.22); White Blood Count 10.97 K/ul (4.8-10.8)
[2022-01-27 12:27] LABS: Albumin Level 2.2 gm/dl (3.4-5.0); BUN Creatinine Ratio 16.4 (10-20); Bilirubin,Total 0.4 mg/dl (0.2-1.0); Calcium 6.7 mg/dl (8.5-10.1); Creatinine Clr Calc Pharmacy 149.9 ml/min; Est GFR (Non-African American) 111.3 ml/min; Globulin 2.2 gm/dl (2.5-4.0); Magnesium Therapeutic L&D Only 4.9 mg/dL (4.0-8.0); Potassium 4.5 mmol/L (3.5-5.1); Total Protein 4.4 gm/dl (6.0-8.3)
[2022-01-27] MEDS ORDERED: LABETALOL HCL IV 5 MG/ML 20ML IV STA (13:48)
[2022-01-27] MEDS ORDERED: KETOROLAC 30 MG/ML VIAL IV PRN (13:58)
[2022-01-27] MEDS ORDERED: ONDANSETRON INJ 2 MG/ML 2 ML VIAL IV PRN (13:58)
[2022-01-27] MEDS ORDERED: diphenhydrAMINE 50 MG/ML VIAL IV PRN (13:58)
[2022-01-27] MEDS ORDERED: PROMETHAZINE HCL 25 MG in SODIUM CHLORIDE 0.9% 50 ML IV PRN (13:58)
[2022-01-27] MEDS ORDERED: diphenhydrAMINE Capsule 25 MG CAP PO PRN (13:58)
[2022-01-27 17:50] LABS: Hematocrit (blood only) 24.9 % (34.1-44.9); Hemoglobin 8.3 g/dl (12.0-16.0); Mean Corpuscular Hemoglobin 27.2 pg (25.0-34.0); Mean Corpuscular Hgb Conc 33.3 g/dL (32.0-36.0); Mean Corpuscular Volume 81.6 fL (80.0-100.0); Mean Platelet Volume 11.7 fL (9.4-12.3); Nucleated RBC # (auto) 0.02 K/uL (0-0); Nucleated RBC % (auto) 0.2 %; Platelet Count 167 K/uL (130-400); RDW Coefficient of Variation 13.6 % (11.5-14.5); RDW Standard Deviation 39.7 fL (36.4-46.3); Red Blood Count 3.05 M/uL (3.93-5.22); White Blood Count 10.27 K/ul (4.8-10.8)
[2022-01-27 18:08] LABS: Albumin Level 2.3 gm/dl (3.4-5.0); BUN Creatinine Ratio 15.5 (10-20); Bilirubin,Total 0.4 mg/dl (0.2-1.0); Calcium 6.8 mg/dl (8.5-10.1); Creatinine Clr Calc Pharmacy 154.1 ml/min; Est GFR (African American) 133.4 ml/min; Est GFR (Non-African American) 115.1 ml/min; Globulin 2.2 gm/dl (2.5-4.0); Potassium 4.4 mmol/L (3.5-5.1); Total Protein 4.5 gm/dl (6.0-8.3)
[2022-01-27] MEDS ORDERED: bisacodyL 5 MG TABEC PO SCH (20:00)
[2022-01-27] MEDS: oxyCODONE/ACETAMINOPHEN 5mg/325mg TAB PO PRN (20:30)
[2022-01-27] MEDS: IBUPROFEN 600 MG TAB PO PRN (22:38)
[2022-01-28] MEDS: oxyCODONE/ACETAMINOPHEN 5mg/325mg TAB PO PRN ×6 (00:28→21:18)
[2022-01-28] MEDS: IBUPROFEN 600 MG TAB PO PRN ×4 (04:10→21:18)
--- NOTE | 2022-01-28 06:14 | Obstetrical Progress Note ---
Date of Service <Corrina Mcclure, DO - Last Filed: 01/28/22 06:37> January 28, 2022 Assessment & Plan <Corrina Mcclure DO - Last Filed: 01/28/22 06:37> (1) Severe pre-eclampsia: (2) Status post section: Plan plan for d/c Sy, do a trial of OOB and ambulation and then progress diet as tolerated Continue to monitor blood pressures. <Deandra Odell, DO - Last Filed: 01/28/22 07:43> (1) Severe pre-eclampsia: (2) Status post section: Subjective <Corrina Mcclure, DO - Last Filed: 01/28/22 06:37> Anne Marie is a 31 y/o female who is POD #2 following delivery at 36 4/7 of di/di twins. She reports feeling well overall this morning. Moderate abdominal cramping. Pain is worse from days prior, but well managed on analgesics. Voiding. Tolerating liquids overnight. Is ambulating. Is passing gas, but no bowel movement. Has some persistent lochia with some improvement this morning. Goal is to breastfeed. Review of Systems Denies fever, chills, sweats Denies shortness of breath, difficulty breathing, chest pain, palpitations, chest pressure. Denies breast pain. Denies dysuria. Denies headache or changes in vision. Physical Exam <Corrina Mcclure, DO - Last Filed: 01/28/22 06:37> General: Alert, oriented. No acute distress. Cardiac: Regular rate and rhythm, no murmurs/rubs/gallops. Respiratory: Clear to auscultation bilaterally a/p, no wheezes/rales/rhonchi. No increased work of breathing. Symmetrical chest rise. No respiratory distress. Abdomen: Soft, nontender, nondistended. Bowel sounds present. Uterus: Uterine fundus firm, palpable 1 cm below umbilicus. Surgical scar clean and healing well. Lower Extremities: LE edema B/L, tender but not erythematous. Results & Data ([facility]) <Corrina Mcclure, DO - Last Filed: 01/28/22 06:37> Vital Signs (Past 12 Hours) Vital Signs Temp Pulse Pulse Resp BP BP Pulse Ox 01/28/22 03:00 83 146/90 H 01/28/22 00:26 83 151/88 H 01/27/22 19:30 36.5 C 18 01/27/22 20:13 93 H 137/88 01/27/22 19:53 90 145/92 H 01/27/22 19:33 81 140/79 01/27/22 19:19 84 153/85 H 01/27/22 19:11 82 98 01/27/22 19:06 78 98 01/27/22 19:01 83 98 01/27/22 18:56 78 96 01/27/22 18:55 80 93 01/27/22 18:53 79 137/82 01/27/22 18:51 82 97 01/27/22 18:50 82 94 01/27/22 18:46 81 95 01/27/22 18:44 81 92 01/27/22 18:41 85 96 01/27/22 18:38 81 92 01/27/22 18:36 82 98 01/27/22 18:34 82 149/81 H 01/27/22 18:31 85 97 01/27/22 18:26 89 97 01/27/22 18:24 87 94 01/27/22 18:21 85 96 01/27/22 18:16 84 97 01/27/22 18:13 83 143/82 H <Deandra Odell, - Last Filed: 01/28/22 07:43> Co-Signing Physician Notes Resident Physician Supervision Note: I interviewed and examined the patient. Discussed with Dr. Mcclure and agree with findings and plan as documented in the note. Any exceptions or clarifications are listed here: POD#2 doing well. Ambulating, eating, urinating. Headache has resolved. BPs better - required one dose IV labetalol yesterday. Labs ok, however hgb has dropped since yesterday - pulse is normal, denies weakness/dizziness. Did discuss possibility of blood transfusion if she becomes symptomatic or if Hgb continues to drop. Documented By: Deandra Odell DO Resident Activity Tracking <Corrina Mcclure, - Last Filed: 01/28/22 06:37> Resident Involvement: Resident Care Provided Care Provided: OB Delivery (Post )
[2022-01-28 06:18] LABS: Hematocrit (blood only) 23.1 % (34.1-44.9); Hemoglobin 7.3 g/dl (12.0-16.0); Mean Corpuscular Hemoglobin 26.4 pg (25.0-34.0); Mean Corpuscular Hgb Conc 31.6 g/dL (32.0-36.0); Mean Corpuscular Volume 83.7 fL (80.0-100.0); Mean Platelet Volume 11.8 fL (9.4-12.3); Platelet Count 181 K/uL (130-400); RDW Coefficient of Variation 13.7 % (11.5-14.5); RDW Standard Deviation 40.7 fL (36.4-46.3); Red Blood Count 2.76 M/uL (3.93-5.22)
[2022-01-28 06:39] LABS: Albumin Level 2.2 gm/dl (3.4-5.0); BUN Creatinine Ratio 15.6 (10-20); Bilirubin,Total 0.3 mg/dl (0.2-1.0); Calcium 6.5 mg/dl (8.5-10.1); Creatinine Clr Calc Pharmacy 142.1 ml/min; Est GFR (African American) 120.9 ml/min; Est GFR (Non-African American) 104.3 ml/min; Globulin 2.1 gm/dl (2.5-4.0); Potassium 4.3 mmol/L (3.5-5.1); Total Protein 4.3 gm/dl (6.0-8.3)
[2022-01-28] MEDS: DOCUSATE SODIUM 100 MG CAP PO SCH ×2 (08:02→21:18)
[2022-01-28] MEDS: SIMETHICONE 80 MG CHEW PO SCH ×4 (08:02→21:18)
[2022-01-28] MEDS: PRENATAL VITAMIN 1 TAB PO SCH (08:02)
[2022-01-28] MEDS: FERROUS SULFATE 325 MG TAB PO SCH (08:02)
[2022-01-28 12:40] LABS: Hemoglobin 8.9 g/dl (12.0-16.0)
[2022-01-28] MEDS ORDERED: bisacodyL 10 MG SUPP PR PRN (19:29)
[2022-01-29] MEDS: oxyCODONE/ACETAMINOPHEN 5mg/325mg TAB PO PRN ×6 (01:23→20:36)
[2022-01-29] MEDS: IBUPROFEN 600 MG TAB PO PRN ×6 (01:23→20:36)
[2022-01-29] MEDS ORDERED: NIFEdipine 10 MG CAP PO STA ×3 (01:33→04:38)
[2022-01-29] MEDS ORDERED: NIFEdipine 10 MG CAP ONE (01:38)
--- NOTE | 2022-01-29 06:16 | Obstetrical Progress Note ---
Date of Service <Corrina Hannon DO Ren - Last Filed: 01/29/22 06:51> January 29, 2022 Assessment & Plan <Corrina SMary Mcclure DO - Last Filed: 01/29/22 06:51> (1) Status post section: (2) Hypertension in , preeclampsia, severe, condition: Plan continue OOB and ambulation and then progress diet as tolerated Elevated blood pressure overnight, came down after 2 doses dose of nifedipine. Start 100mg labetalol BID this morning. <Jessica Hall MD, FACOG - Last Filed: 01/29/22 07:57> (1) Status post section: (2) Hypertension in , preeclampsia, severe, condition: Plan continue OOB and ambulation and then progress diet as tolerated Elevated blood pressure overnight, came down after 2 doses dose of nifedipine. Start 100mg labetalol BID this morning. continues to have intermittent chest pressure which does not radiate. Patient is attributing this to positioning while in bed, but we will get a 12 lead EKG this morning. Subjective <Corrina Mcclure DO - Last Filed: 01/29/22 06:51> Anne Marie is a 31 y/o female who is POD #3 following delivery at 36 4/7 of di/di twins. She reports feeling well overall this morning. Moderate abdominal cramping. Pain is well managed on analgesics. Voiding. Tolerating liquids overnight. Is ambulating. Is passing gas, but no bowel movement. Has some persistent lochia with some improvement this morning. Goal is to breastfeed. Is experiencing some chest tightness, says it feels like it's hard to take a deep breath. Some improvement after nifedipine. Review of Systems Denies fever, chills, sweats Denies shortness of breath, difficulty breathing, chest pain, palpitations, chest pressure. Denies breast pain. Denies dysuria. Denies headache or changes in vision. Physical Exam <Corrian Mcclure DO - Last Filed: 01/29/22 06:51> General: Alert, oriented. No acute distress. Cardiac: Regular rate and rhythm, no murmurs/rubs/gallops. Respiratory: Clear to auscultation bilaterally a/p, no wheezes/rales/rhonchi. No increased work of breathing. Symmetrical chest rise. No respiratory distress. Abdomen: Soft, nontender, nondistended. Bowel sounds present. Uterus: Uterine fundus firm, palpable 1 cm below umbilicus. Surgical scar clean and healing well. Lower Extremities: No lower extremity edema or swelling. No deep calf pain. Graciela's negative bilaterally. Results & Data ([facility]) <Corrina Mcclure DO - Last Filed: 01/29/22 06:51> Vital Signs (Past 12 Hours) Vital Signs Temp Pulse Resp BP BP Pulse Ox O2 Del Method 01/29/22 05:52 84 131/84 01/29/22 04:36 82 163/96 H 01/29/22 02:22 93 H 143/81 H 01/29/22 01:27 176/103 H 165/101 H 01/28/22 21:24 36.6 C 86 16 148/97 H 136/90 98 Room Air <Jessica Hall MD, FACOG - Last Filed: 01/29/22 07:57> Co-Signing Physician Notes Resident Physician Supervision Note: I interviewed and examined the patient. Discussed with Dr. Mcclure and agree with findings and plan as documented in the note. Any exceptions or clarifications are listed here: [None] Documented By: Jessica Hall MD, FACOG Resident Activity Tracking <Corrina Mcclure DO - Last Filed: 01/29/22 06:51> Resident Involvement: Resident Care Provided Care Provided: OB Delivery (Post )
[2022-01-29] MEDS: LABETALOL HCL 100 MG TAB PO SCH ×2 (08:07→21:49)
[2022-01-29] MEDS: FERROUS SULFATE 325 MG TAB PO SCH (08:59)
[2022-01-29] MEDS: DOCUSATE SODIUM 100 MG CAP PO SCH ×2 (08:59→20:35)
[2022-01-29] MEDS: SIMETHICONE 80 MG CHEW PO SCH ×4 (08:59→20:36)
[2022-01-29] MEDS: PRENATAL VITAMIN 1 TAB PO SCH (09:15)
[2022-01-30] MEDS: IBUPROFEN 600 MG TAB PO PRN ×5 (00:39→19:58)
[2022-01-30] MEDS: oxyCODONE/ACETAMINOPHEN 5mg/325mg TAB PO PRN ×5 (00:40→19:58)
--- NOTE | 2022-01-30 05:42 | Electrocardiogram Report ---
Test Reason : Blood Pressure : / mmHG Vent. Rate : 085 BPM Atrial Rate : 085 BPM P-R Int : 140 ms QRS Dur : 078 ms QT Int : 394 ms P-R-T Axes : 060 070 039 degrees QTc Int : 468 ms Normal sinus rhythm Normal ECG No previous ECGs available Confirmed by Leo Haas ([id number]) on 01/30/2022 5:41:51 AM Referred By: Matilda Pineda Confirmed By:Leo Haas
--- NOTE | 2022-01-30 07:06 | Obstetrical Progress Note ---
Date of Service <Corrina Hannon DO Ren - Last Filed: 01/30/22 07:06> January 30, 2022 Assessment & Plan <Corrina McclureDO - Last Filed: 01/30/22 07:06> (1) Hypertension in , preeclampsia, severe, condition: (2) Status post section: Plan continue OOB and ambulation and then progress diet as tolerated Blood pressures better controlled with labetalol 100mg BID. Plan to discharge today with follow up Wednesday for BP check <Melissa Temple MD, FACOG - Last Filed: 01/30/22 07:12> (1) Hypertension in , preeclampsia, severe, condition: (2) Status post section: Subjective <Corrina S. DO Ren - Last Filed: 01/30/22 07:06> Anne Marie is a 31 y/o female who is POD #4 following delivery at 36 4/7 of di/di twins. She reports feeling well overall this morning. Moderate abdominal cramping. Pain is well managed on analgesics. Voiding. Tolerating liquids overnight. Is ambulating. Is passing gas, but no bowel movement. Has some persistent lochia with some improvement this morning. Goal is to breastfeed. Review of Systems Denies fever, chills, sweats Denies shortness of breath, difficulty breathing, chest pain, palpitations, chest pressure. Denies breast pain. Denies dysuria. Denies headache or changes in vision. Physical Exam <Corrinaeileen McclureDO - Last Filed: 01/30/22 07:06> General: Alert, oriented. No acute distress. Cardiac: Regular rate and rhythm, no murmurs/rubs/gallops. Respiratory: Clear to auscultation bilaterally a/p, no wheezes/rales/rhonchi. No increased work of breathing. Symmetrical chest rise. No respiratory distress. Abdomen: Soft, nontender, nondistended. Bowel sounds present. Uterus: Uterine fundus firm, palpable 3 cm below umbilicus. Surgical scar clean and healing well. Lower Extremities: No lower extremity edema or swelling. No deep calf pain. Graciela's negative bilaterally. Results & Data ([facility]) <Corrina Riddhi Mcclure DO - Last Filed: 01/30/22 07:06> Vital Signs (Past 12 Hours) Vital Signs Temp Pulse Resp BP Pulse Ox O2 Del Method 01/29/22 23:14 36.7 C 75 16 139/88 97 Room Air 01/29/22 19:10 36.7 C 86 18 169/93 H 97 Room Air <Melissa Temple MD, FACOG - Last Filed: 01/30/22 07:12> Co-Signing Physician Notes Resident Physician Supervision Note: I interviewed and examined the patient. Discussed with Dr. Mcclure and agree with findings and plan as documented in the note. Any exceptions or clarifications are listed here: Doing well. BP fairly well controlled on labtalol 100mg bid. no s/s pet. Plan d/c today . Instructions clearly reviewed. f/u Mon in the office for bp check. Documented By: Melissa Temple MD, FACOG
[2022-01-30] MEDS: SIMETHICONE 80 MG CHEW PO SCH ×2 (09:39→13:41)
[2022-01-30] MEDS: FERROUS SULFATE 325 MG TAB PO SCH (09:40)
[2022-01-30] MEDS: PRENATAL VITAMIN 1 TAB PO SCH (09:40)
[2022-01-30] MEDS: DOCUSATE SODIUM 100 MG CAP PO SCH (09:40)
[2022-01-30] MEDS: LABETALOL HCL 100 MG TAB PO SCH (11:22)
[2022-01-30] MEDS ORDERED: LABETALOL HCL 100 MG TAB PO ONE (13:33)
[2022-01-30] MEDS ORDERED: LABETALOL HCL 200 MG TAB PO SCH ×2 (21:00)
--- NOTE | 2022-02-04 07:38 | Discharge Summary ---
Date of Service February 04, 2022 Admission HPI Per Admitting Provider Anne Marie is a 31 y/o female currently at 36 4/7 WGA with an JEFFERY 02/19/22 as determined by LMP who is here for with preeclampsia with serve features. Her was complicated by preecmalpsia and GDM. She is having di/di twins. Irregular contractions; + movement; no fluid loss; no bloody show External FHT and external uterine monitors used; Category 1 tracing; mod FHT variability. Had regular appointments with OB. Labs: (07/16/21) Blood type: A- Antibody screen: neg Hg: pending (today) Hct: pending (today) WBC: pending (today) Plt: pending (today) Rubella: immune VDRL/RPR: nonreactive Gonorrhea: neg Chlamydia: neg HIV: neg HbSAg: neg GBS: neg Other screens: declines all genetics/msafp --smp Admission Exam (Per Admitting) Constitutional WD/WN, vitals as above well developed and well nourished Respiratory normal respiratory effort, lungs clear to auscultation normal respiratory effort Cardiovascular RRR, no murmur, no edema Gastrointestinal (Abdomen) normal bowel sounds, soft, nontender, no hepatosplenomegaly Discharge Data Consultations 01/26/22 16:09 Consult Anesthesiology Stat Procedures Performed Operation Date: 01/26/22 18:30 Actual Procedures p Primary Section for the of a live female, A at 1857 and live female, B at 1858(Bilateral) - Matilda Pineda MD, [facility] [place] Course (1) Hypertension in , preeclampsia, severe, condition: (2) Status post section: Plan continue OOB and ambulation and then progress diet as tolerated Blood pressures better controlled with labetalol 100mg BID. Plan to discharge today with follow up Wednesday for BP check Supervising Physician Co-Signing Physician Notes Resident Physician Supervision Note: I interviewed and examined the patient. Discussed with Dr. Mcclure and agree with findings and plan as documented in the note. Any exceptions or clarifications are listed here: Doing well. BP fairly well controlled on labtalol 100mg bid. no s/s pet. Plan d/c today . Instructions clearly reviewed. f/u Mon in the office for bp check. Documented By: Melissa Temple MD, [facility] C[facility] Level of Care Code None Diagnoses Hypertension in , preeclampsia, severe, condition O14.15 Status post section Z98.891
== END 2022-01-30 20:03 | disposition home or self-care (01) | DRG 788 ==
LOC: OPB 15:42 → 4S1 15:43 → 4E2 01-27 21:11